=== PATIENT | male | born 1985 | race Caucasian/White ===

== ENCOUNTER 2024-01-20 22:41 | Emergency (ER) | payer OTHER ==
[~2024-01-20] VITALS: Ht 185.4 cm; Wt 99.8 kg
[2024-01-20 23:15] VITALS: TEMP 98.2
[2024-01-20] MEDS ORDERED: AMLO-212 PO (23:53)
[2024-01-21] MEDS ORDERED: AMLODIPINE BESYLATE 5 MG TABLET ONE (00:02)
[2024-01-21] MEDS: AMLODIPINE BESYLATE 5 MG TABLET PO ONE (00:07)
[2024-01-21 00:49] VITALS: BP 164/112; O2SAT 97
== END 2024-01-21 00:50 | disposition home or self-care (01) ==
LOC: ER 22:49
DX: R03.0 Elevated blood-pressure reading, without diagnosis of hypertension (principal); R94.31 Abnormal electrocardiogram [ECG] [EKG]; Z60.2 Problems related to living alone
CPT/HCPCS: 36415; 80048-TC; 85025-TC